=== PATIENT | female | born 1985 | race Caucasian/White ===

== ENCOUNTER 2020-10-11 14:24 | Outpatient (REF) | payer OTHER, SELFPAY ==
[2020-10-11 15:13] LABS: COVID-19 Test Negative (Negative); IDNOW Serial# 55D5AD1C
== END 2020-10-11 14:25 | disposition home or self-care (01) ==
LOC: HO.LAB 14:24
PROVIDERS: Visit Provider Internal Medicine
DX: Z20.822 Contact with and (suspected) exposure to COVID-19 (principal)
CPT/HCPCS: 36415; 87635; C9803

== ENCOUNTER 2021-05-16 11:42 | Outpatient (REF) | payer OTHER, SELFPAY ==
[2021-05-16 13:53] LABS: MANUAL DIFF FLAG NO
[2021-05-16 14:01] LABS: Basophils Percent Auto 0.6 % (0-2); Eosinophils Absolute Auto 0.3 X10*3/uL (0.0-0.4); Eosinophils Percent Auto 3.9 % (0-4); Hematocrit 38.3 % (37.0-47.0); Hemoglobin 12.1 g/dl (12.0-16.0); Imm Gran Abs Auto 0.01 X10*3/uL (0.00-0.03); Imm Gran Pct Auto 0.1 % (0.0-0.4); Lymphocytes Absolute Auto 2.4 X10*3/uL (1.2-4.9); Lymphocytes Percent Auto 33.5 % (20-40); Mean Corpuscular HGB Conc 31.6 g/dl (31.0-35.0); Mean Corpuscular Hemoglobin 29.4 pg (27.0-33.0); Mean Corpuscular Volume 93.2 fL (80.0-98.0); Mean Platelet Volume 11.3 fL (9.4-12.3); Monocytes Absolute Auto 0.5 X10*3/uL (0.1-1.2); Monocytes Percent Auto 7.3 % (2-11); Neutrophils Absolute Auto 3.9 x10*3/uL (2.0-8.3); Neutrophils Percent Auto 54.6 % (45-73); Platelet Count 360 X10*3/uL (160-400); Red Blood Count 4.11 X10*6/uL (4.20-5.50); Red Cell Distribution Width 15.3 % (11.0-16.0); White Blood Count 7.1 X10*3/uL (4.8-10.8)
[2021-05-16 14:17] LABS: Iron 196 mcg/dL (30-160); Percent Iron Saturation 41 % (15-50); Total Iron Binding Capacity 479 mcg/dL (228-428); Unsaturated Iron Binding 283 ug/dL
== END 2021-05-16 11:43 | disposition home or self-care (01) ==
LOC: HO.HMGCLDS 11:42
PROVIDERS: PCP Internal Medicine; Visit Provider Physician Assistant Medical
DX: Z20.822 Contact with and (suspected) exposure to COVID-19 (principal); G43.909 Migraine, unspecified, not intractable, without status migrainosus
CPT/HCPCS: 36415; 83540; 85025; U0003; U0005

== ENCOUNTER 2023-05-20 16:19 | Outpatient (REF) | payer OTHER, SELFPAY ==
--- NOTE | ~2023-05-20 | CT_ITS ---
EXAMINATION: CT SINUS WITHOUT CONTRAST CLINICAL INFORMATION: 38-year-old with polyp of nasal cavity. COMPARISON: None available. TECHNIQUE: Volumetric CT imaging of the paranasal sinuses was done with multiplanar reformatted reconstructions without IV contrast. This CT examination was performed using dose optimization techniques as appropriate, variously including the following: *Automated exposure control *Adjustment of mA and/or kV according to patient size (this includes techniques or standardized protocols for targeted exams where dose is matched to indication/reason for exam; i.e. extremities or head) *Use of iterative reconstruction technique DLP: 107 mGy-cm FINDINGS: NASAL CAVITY: There is mild nasal septal deviation to the left with a spur on the left encroaching on the left middle meatus. There is a w[place] bullosa in the left middle turbinate. The olfactory recesses are clear. There is thickening of the inferior turbinates bilaterally, right more than left without nodularity. No discrete nasal cavity masses identified. The visualized nasopharyngeal soft tissues appear relatively symmetric and normal in attenuation. MAXILLARY SINUSES: Well-pneumatized bilaterally. There are bilateral Gemma cells, which are opacified on the left, with anatomic narrowing of the right maxillary infundibulum without occlusion. No air-fluid levels or significant mucosal thickening. Bony tovar are intact. ETHMOID SINUSES: The ethmoid complex demonstrates minor mucosal thickening, with grossly intact bony tovar. There are bilateral supraorbital cells. Incidental left-sided Onodi cell. FRONTAL SINUSES: Hyperpneumatized bilaterally. Mild mucosal thickening in the right frontal recess without air-fluid level. Accessory frontal cells noted in the region of the left frontal recess with mild mucosal thickening. No air-fluid levels. SPHENOID SINUS: Well-pneumatized. Foci of mucosal thickening are seen obscuring the sphenoid ostia bilaterally. No air-fluid levels. Carotid canals are covered by bone. ADDITIONAL FINDINGS: Limited assessment of the included intracranial structures. No gross acute process. Orbital soft tissues appear symmetric and unremarkable. Visualized calvarium is intact. The mastoids and middle ear cavities are unopacified. Both mastoids are hyperpneumatized. CT/CT sinus wo IV con IMPRESSION: 1. Mild nasal septal deviation to the left with a spur on the left encroaching on the left middle meatus. 2. Thickening of the inferior turbinates bilaterally, right more than left. No discrete nasal cavity masses are identified. 3. Mild mucosal thickening in the ethmoid complex, frontal recesses and sphenoid ostia without air-fluid levels. 4. Bilateral Gemma cells, which are opacified on the left with anatomic narrowing of the right maxillary infundibulum.
== END 2023-05-20 16:20 | disposition home or self-care (01) ==
LOC: HO.CT 16:19
PROVIDERS: Visit Provider Otolaryngology
DX: J33.0 Polyp of nasal cavity (principal); J34.2 Deviated nasal septum
CPT/HCPCS: 70486

== ENCOUNTER 2024-01-29 09:04 | Outpatient (AMB) | payer OTHER, SELFPAY ==
--- NOTE | 2024-01-29 09:20 | AM.OFFWIN_ITS ---
Intake Vital Signs 01/29/24 09:21 Height 5 ft 6 in Weight 167 lb BMI 27.0 BP 98/70 Blood Pressure Location Rt brachial Position Sitting Pulse 58 Pulse Source Pulse Oximeter Pulse Oximetry (%) 100 Oxygen Delivery Method Room Air Intake Visit Reasons: EP- dizziness, nausea, cold sweats Intake Note: Patient here because on Thursday she had dizzy spell and nausea and had to sleep it off and it started again today. Patient Tobacco Use Status: Never used Tobacco Allergies No Known Allergies Allergy (Verified 01/29/24 09:22) Do you need a note to return to daycare/school/sports/work: Yes HPI HPI Comments History of Present Illness Details 39 y/o female patient who presents to [facility] in clinic with c/o URI symptoms associated with Dizziness. Today patient has low BP which is not normal for her. She does report hydrating well. This morning has not eaten anything yet. PFSH Social History Patient Tobacco Use Status: Never used Tobacco Review of Systems Const All systems reviewed & are unremarkable except as noted in HPI and below Physical Exam Vital Signs: Last Vital Signs Pulse 58 01/29/24 09:21 BP 98/70 01/29/24 09:21 Pulse Ox 100 01/29/24 09:21 Oxygen Delivery Method Room Air 01/29/24 09:21 BMI result Body Mass Index 27.0 Const General: comfortable and no acute distress Orientation/consciousness: patient oriented x3 Resp Effort & Inspection: normal respiratory effort and able to speak in complete sentences Auscultation: clear to auscultation bilaterally Cardio Heart sounds: S1 normal heart sound present and S2 normal heart sound present Neuro General: patient oriented x3, gait normal and moves all extremities Psych Speech and movement: Normal speech and movement present Assessment & Plan Assessment & Plan (1) Dizziness: Code(s): R42 - Dizziness and giddiness Plan: OTC Meclizine Rest Eat some food Hydrate well. (2) Upper respiratory infection: Code(s): J06.9 - Acute upper respiratory infection, unspecified Qualifiers: URI type: unspecified viral URI Qualified Code(s): J06.9 - Acute upper respiratory infection, unspecified Plan: Rest Hydrate well. Acetaminophen for pain relief. Coding Level of Care Code Est Pt Level 3 (95802) Diagnoses Dizziness R42 Viral upper respiratory tract infection J06.9 URI type: unspecified viral URI Time Spent (min) 15
[2024-01-29 09:21] VITALS: BP 98/70; PULSE 58; O2SAT 100; BMI 27.0
== END 2024-01-29 10:02 | disposition home or self-care (01) ==
PROVIDERS: PCP Internal Medicine; Visit Provider Nurse Practitioner Family
DX: R42 Dizziness and giddiness (principal); J06.9 Acute upper respiratory infection, unspecified
CPT/HCPCS: 99213

== ENCOUNTER 2024-01-30 16:30 | Emergency (ER) | payer OTHER, SELFPAY ==
[2024-01-30 16:41] VITALS: BP 138/92; PULSE 62; RESP 16; TEMP 36.7; O2SAT 100; BMI 30.1
--- NOTE | 2024-01-30 18:23 | ED.GENADULT ---
HPI - General Adult General Chief complaint: Dizziness Stated complaint: dizziness past wk nausea Time Seen by Provider: 01/30/24 17:50 History of Present Illness ED Provider: Zelalem ETIENNE narrative: The patient is a 39-year-old female who was ordinarily in fairly good health. She is on Lexapro and control pills. She says that 4 days ago on Thursday she had a sudden dizzy spell when she was in a store that was associated with a sense of the room spinning and also a sense of diaphoresis. The symptoms lasted possibly as long as 45 minutes. She went to an urgent care after the episode and was told she might be dehydrated. She then had another similar episode yesterday morning and 2 more episodes this morning which were all very similar and which prompted her to come to the emergency room. The patient says the symptoms are not associated with any significant headache or chest pain or shortness of breath. She has had some nausea but no vomiting. No fever, sweats, chills. She says she had a brief episode while lying on the stretcher in the emergency department. She has never had episodes like this before. Related Data Home Medications ?Medication ?Instructions ?Recorded ?Confirmed norgestimate 0.25 mg-ethinyl 1 tab PO DAILY 05/16/21 estradiol 35 mcg tablet escitalopram oxalate 5 mg tablet 5 mg PO DAILY 01/29/24 Allergies Allergy/AdvReac Type Severity Reaction Status Date / Time No Known Allergies Allergy Verified 01/30/24 16:41 [facility] Social History Social History Patient Tobacco Use Status: Never used Tobacco Smoked in Last 30 Days: No Use of substances other than those prescribed or required for medical reasons: No Advance Directives: No Advance Directives Information Provided: No Do you have a plan to hurt others: No Plan Physical Exam ED Vital Signs: Vital Signs - 24 hr 01/30/24 16:41 01/30/24 20:21 Temperature 98.0 F 97.9 F Pulse Rate 62 64 Respiratory Rate 16 14 Blood Pressure 138/92 H 116/71 Pulse Oximetry 100 99 Oxygen Delivery Method Room Air Room Air BMI result Body Mass Index 30.1 Const General: cooperative, healthy appearing, comfortable, no acute distress, well developed, alert and awake Orientation/consciousness: patient oriented x3 HENMT Head: Yes normal to inspection Ears: external ears normal, TM's normal bilaterally and EAC's normal Face and sinus: Yes normal facial exam Mouth: Normal oral and palatal mucosa present, tongue normal and moist mucous membranes Throat: Yes posterior oropharynx normal Eyes Other: No nystagmus General: appearance normal, both eyes and all related structures Alignment and Position: alignment normal Conjunctivae: conjunctivae normal Pupils: Equal, round and reactive pupils present EOM: EOMs intact bilaterally Neck Neck: Yes normal visual inspection, Yes full ROM, Yes no lymphadenopathy, Yes no meningeal signs and Yes supple Resp Effort & Inspection: normal respiratory effort Auscultation: clear to auscultation bilaterally Cardio Rate: regular rate Rhythm: regular rhythm Heart sounds: S1 normal heart sound present and S2 normal heart sound present Skin Other: Warm and dry, normal skin General skin exam: no rashes or lesions noted Neuro General: patient oriented x3, tone normal, moves all extremities, no meningeal signs and CN's II-XI intact bilaterally Cranial nerves: Yes Equal, round and reactive pupils present Cognition (Neuro): normal cognition Motor exam (neuro): 5/5 motor strength present throughout and Pronator motor function not present Coordination: [id number]-[id number] test normal and vezr-eb-[id number] test normal Extrem General: Yes normal to inspection, Yes no pedal edema and Yes no calf tenderness Medications Administered Discontinued Medications Generic Name Dose Route Start Last Admin Trade Name Freq PRN Reason Stop Dose Admin Sodium Chloride 1,000 mls @ 999 mls/hr 01/30/24 19:00 01/30/24 20:30 Ns IV 01/30/24 20:00 Infused .Q1H1M MAINOR Infusion Medical Decision Making Medical Decision Making [facility] Narrative: The patient is a 39-year-old female who presents for evaluation of several episodes over the last several days of what she describes as room spinning dizziness associated with mild headaches. Episodes can last as long as 45 minutes. The patient does not seem to describe any positional nature to this room spinning dizziness. The episodes seem discrete by her description and do not seem to be triggered by any particular factor. She has an unremarkable EKG she has unremarkable laboratory studies today. Her physical exam does not reveal any focal neurological deficit. Her overall appearance is very benign and nontoxic. I do not have a good explanation for her symptoms but I think she may be discharged to follow-up with her regular doctor. Lab Data 01/30/24 19:30 01/30/24 19:30 Labs: Lab Results 01/30/24 01/30/24 01/30/24 Range/Units 19:28 19:30 20:22 WBC 7.5 (4.8-10.8) X10*3/uL RBC 4.48 (4.20-5.50) X10*6/uL Hgb 14.2 (12.0-16.0) g/dl Hct 41.9 (37.0-47.0) % MCV 93.5 (80.0-98.0) fL MCH 31.7 (27.0-33.0) pg MCHC 33.9 (31.0-35.0) g/dl RDW 13.4 (11.0-16.0) % Plt Count 363 (160-400) X10*3/uL MPV 10.4 (9.4-12.3) fL Immature Gran % (Auto) 0.1 (0.0-0.4) % Neut % (Auto) 43.1 L (45-73) % Lymph % (Auto) 41.9 H (20-40) % [place] % (Auto) 5.5 (2-11) % Eos % (Auto) 8.6 H (0-4) % Baso % (Auto) 0.8 (0-2) % Lymph # (Auto) 3.1 (1.2-4.9) X10*3/uL [place] # (Auto) 0.4 (0.1-1.2) X10*3/uL Eos # (Auto) 0.6 H (0.0-0.4) X10*3/uL Baso # (Auto) 0.1 (0.0-0.2) X10*3/uL Abs Immat Gran (auto) 0.01 (0.00-0.03) X10*3/uL Absolute Neuts (auto) 3.2 (2.0-8.3) x10*3/uL Absolute Nucleated RBC 0.000 (0.0-0.012) X10*3/uL Nucleated RBC % (auto) 0.0 (0.0-0.2) /100WBC Sodium 141 (135-145) mmol/L Potassium 4.0 (3.3-5.1) mmol/L Chloride 104 (96-108) mmol/L Carbon Dioxide 26 (22-29) mmol/L Anion Gap 15 (12-20) BUN 11 (9-16) mg/dL Creatinine 0.67 (0.5-1.4) mg/dL Estim Creat Clear Calc 126.0 Estimated GFR > 60 Random Glucose 96 (60-115) mg/dL Calcium 9.6 (8.4-10.2) mg/dL Magnesium 2.2 (1.6-2.6) mg/dL Total Bilirubin 0.4 (0.0-1.0) mg/dL Direct Bilirubin 0.1 (0.0-0.5) mg/dL AST 22 (5-31) U/L ALT 14 (0-31) U/L Alkaline Phosphatase 49 (39-117) U/L C-Reactive Protein 0.26 (< or = 0.50) mg/dL Total Protein 7.7 (6.5-8.0) g/dL Albumin 4.3 (3.5-5.0) g/dL Beta HCG, Quant < 2 mIU/mL Influenza Type A (PCR) NEGATIVE (Negative) Influenza Type B (PCR) NEGATIVE (Negative) RSV RNA Qual (PCR) NEGATIVE (Negative) SARS-CoV-2 RNA (RT-PCR) NEGATIVE (Negative) Independent Interpretation I performed an independent interpretation of an: EKG Interpretation: EKG at 19:07 shows normal sinus rhythm at 66 beats per minute. It is a normal EKG. Discharge Plan Discharge Clinical Impression: Severe dizziness Patient Disposition: Home, Self-Care Additional Instructions: Your testing in the emergency room today and your physical exam seems very reassuring. It is not clear to me why you are having these episodes of room spinning dizziness. Please keep your appointment with your regular doctor on Thursday. Emergency room if significantly worse. Prescriptions: No Action escitalopram oxalate 5 mg tablet 5 mg PO DAILY Referrals: Corry Joseph MD [Primary Care Provider] - (episodes of room spinning dizziness) Interventions: ED Discharge Assessment Last Done: 01/30/24 21:25 Discharge Date/Time: 01/30/24 21:28 Print Language: Guamanian
--- NOTE | 2024-01-30 18:55 | ECG_ITS ---
Test Reason : DIZZINESS Blood Pressure : / mmHG Vent. Rate : 066 BPM Atrial Rate : 066 BPM P-R Int : 206 ms QRS Dur : 070 ms QT Int : 398 ms P-R-T Axes : 055 008 038 degrees QTc Int : 417 ms Normal sinus rhythm Normal ECG No previous ECGs available Referred By: Dennis Masterson Electronically Signed By:NKECHI RODRIGUEZ
[2024-01-30] MEDS: 0.9 % Sodium Chloride 1,000 ML 999 ML IV (19:29)
--- NOTE | 2024-01-30 19:39 | PC.NURSE ---
Pt ca&ox4, no signs of distress. Pt ambulates with steady gait. IV placed and meds administered per aug. Pts family at bedside. Pt denies pain at this time. Plan of care ongoing.
[2024-01-30 19:41] LABS: MANUAL DIFF FLAG NO
[2024-01-30 19:43] LABS: Basophils Absolute Auto 0.1 X10*3/uL (0.0-0.2); Basophils Percent Auto 0.8 % (0-2); Eosinophils Absolute Auto 0.6 X10*3/uL (0.0-0.4); Eosinophils Percent Auto 8.6 % (0-4); Hematocrit 41.9 % (37.0-47.0); Hemoglobin 14.2 g/dl (12.0-16.0); Imm Gran Abs Auto 0.01 X10*3/uL (0.00-0.03); Imm Gran Pct Auto 0.1 % (0.0-0.4); Lymphocytes Absolute Auto 3.1 X10*3/uL (1.2-4.9); Lymphocytes Percent Auto 41.9 % (20-40); Mean Corpuscular HGB Conc 33.9 g/dl (31.0-35.0); Mean Corpuscular Hemoglobin 31.7 pg (27.0-33.0); Mean Corpuscular Volume 93.5 fL (80.0-98.0); Mean Platelet Volume 10.4 fL (9.4-12.3); Monocytes Absolute Auto 0.4 X10*3/uL (0.1-1.2); Monocytes Percent Auto 5.5 % (2-11); Neutrophils Absolute Auto 3.2 x10*3/uL (2.0-8.3); Neutrophils Percent Auto 43.1 % (45-73); Platelet Count 363 X10*3/uL (160-400); Red Blood Count 4.48 X10*6/uL (4.20-5.50); Red Cell Distribution Width 13.4 % (11.0-16.0); White Blood Count 7.5 X10*3/uL (4.8-10.8)
[2024-01-30 20:01] LABS: Alanine Aminotransferase 14 U/L (0-31); Albumin Level 4.3 g/dL (3.5-5.0); Alkaline Phosphatase 49 U/L (39-117); Anion Gap 15 (12-20); Aspartate Amino Transferase 22 U/L (5-31); Bilirubin Direct 0.1 mg/dL (0.0-0.5); Bilirubin Total 0.4 mg/dL (0.0-1.0); Blood Urea Nitrogen 11 mg/dL (9-16); C Reactive Protein 0.26 mg/dL (< or = 0.50); Calcium 9.6 mg/dL (8.4-10.2); Carbon Dioxide 26 mmol/L (22-29); Chloride 104 mmol/L (96-108); Estimated Glomerular Filt Rate > 60; Glucose Random 96 mg/dL (60-115); Magnesium 2.2 mg/dL (1.6-2.6); Sodium 141 mmol/L (135-145); Total Protein 7.7 g/dL (6.5-8.0)
[2024-01-30 20:05] LABS: HCG Quantitative < 2 mIU/mL
[2024-01-30 20:21] VITALS: BP 116/71; PULSE 64; RESP 14; TEMP 36.6; O2SAT 99
[2024-01-30 21:05] LABS: Influenza A PCR NEGATIVE (Negative); Influenza B PCR NEGATIVE (Negative); Resp Syncy Virus RNA Qual PCR NEGATIVE (Negative); SARS COV2 PCR INHOUSE NEGATIVE (Negative)
[2024-01-30 21:25] VITALS: BP 116/71; PULSE 64; RESP 14; TEMP 36.6; O2SAT 99
== END 2024-01-30 21:28 | disposition home or self-care (01) ==
PROVIDERS: Emergency Provider Emergency Medicine; PCP Internal Medicine
DX: R42 Dizziness and giddiness (principal); Z03.818 Encounter for observation for suspected exposure to other biological agents ruled out
CPT/HCPCS: 0241U; 36415; 80048; 80076; 83735; 84702; 85025; 86140; 93005; 96360; 99284; 99285

== ENCOUNTER 2024-07-08 10:15 | Outpatient (REF) | payer OTHER, SELFPAY ==
--- OUTSIDE RECORDS SUMMARY | 2024-07-08 13:43 | XMS_ITS | Clinical Summary ---
Author Organization [facility] Address [address] [place] [address] Phone Care Team Providers Care Mail Handlers Supervisor Name Role Phone Unavailable Primary Care Provider Unavailabl e Immunizations Name Administration Dates Next Due DTP 08/12/1998, 8,05/14/1997,03/14/1997 ,10/13/1991 Hib (HbOC) 08/12/1998 IPV 02/12/1999, 8,05/14/1997,03/14/1997 ,10/13/1991 Influenza, injectable, trivalent 04/22/2007,01/2003 MMR 01/28/1988 Family History Relation Name Status Comments Brother Alive Brother: h/o as thma Father Father: Diabete s mellitus Mother Mother: Asthma, high cholesterol Social History Tobacco Use Types Packs/Day Years Used Date Smoking Tobacco: Never Assessed Comments Unknown Sex and Gender Information Value Date Recorded Sex Assigned at Not on file Legal Sex Female 4:36 PM EDT Gender Identity Not on file Sexual Orientation Not on file Plan of Treatment Health Maintenance Due Date Last Done Comments Varicella Vaccines (1 of 2 - 13+ 2-dose series) 01/17/2000 Hepatitis B Vaccines (1 of 3 - 19+ 3-dose series) 2006 DTaP,Tdap,and Td Vaccines (4 - Tdap) 08/12/2008 08/12/1998, 07/15/1997, 05/14/1997, Additional history exists Influenza Vaccines (#1) 2024 04/22/2007, 05/22 COVID-19 Vaccine ( season) 2024 MMR Vaccines Completed 01/28/1988 HIB Vaccines Aged Out 08/12/1998 No longer eligi ble based on patient's age to complete this topic IPV Vaccines Completed 02/12/1999, 06/17, 05/14/1997, Additional history exists HPV Vaccines Aged Out No longer eligi ble based on patient's age to complete this topic Hepatitis A Vaccines Aged Out No long er eligible based on patient's age to complete this topic Men B Vaccine Aged Out No longer elig ible based on patient's age to complete this topic Meningococcal Vaccine Aged Out No mil sahara eligible based on patient's age to complete this topic Pneumococcal Vaccine Aged Out No long er eligible based on patient's age to complete this topic
--- OUTSIDE RECORDS SUMMARY | 2024-07-08 13:43 | XMS_ITS | Encounter Summary ---
Author Organization [facility] Address [address] [place] [phone] Phone Care Team Providers Care Tanker Driver Name Role Phone Unavailable Primary Care Provider Unavailabl e Encounter Details Date Type Department Care Team (Late st Contact Info) Description 01/29/2017 Conversion Encounter [facility] - [address] [id number] Social History Tobacco Use Types Packs/Day Years Used Date Smoking Tobacco: Never Assessed Comments Unknown Sex and Gender Information Value Date Recorded Sex Assigned at Not on file Legal Sex Female 4:36 PM EDT Gender Identity Not on file Sexual Orientation Not on file documented as of this encounter Plan of Treatment Not on file documented as of this encounter Visit Diagnoses Not on filedocumented in this encounter
--- OUTSIDE RECORDS SUMMARY | 2024-07-08 13:43 | XMS_ITS | Clinical Summary ---
Author Organization [facility] [address] [facility] Address [address] [facility] [place], [place] Phone Care Team Providers Care Material Carrier Name Role Phone Gaston Shetty MD Primary Care Provider [phone] Allergies Active Allergy Reactions Criticality Noted Date Comments Pollen Extracts 11/20/2016 Medications Medication Sig Dispensed Refills Start Date End Date Status aspirin-acetaminop hen-caffeine (EXCEDRIN MIGRAINE) 250-250-65 mg per tablet Take 1 tablet by mouth every 6 (six) hours if needed. Active ferrous sulfate 325 mg (65 mg elemental iron) tablet Take 1 tablet (325 mg total) by mouth 1 (one) time each day. 11/26/2023 Active norgestimate-ethin yl estradioL (ORTHO-CYCLEN) 0.25-35 mg-mcg per tablet Take 1 tablet by mouth 1 (one) time each day. 12/31/2023 Active escitalopram (LEXAPRO) 5 mg tablet Take 1 tablet (5 mg total) by mouth 1 (one) time each day. Active escitalopram (LEXAPRO) 10 mg tablet Take 1 tablet (10 mg total) by mouth 1 (one) time each day. 02/25/2024 06/24/2024 Discontinued Active Problems Problem Noted Date Diagnosed Date Iron deficiency anemia 01/26/2019 Migraine 05/20/2011 Low back pain 07/03/2009 Overview (03/12/2024): IMO update Encounters Date Type Department Care Team Description 06/24/2024 9:05 AM EST - 06/24/2024 11:59 PM [facility] Hospital Encounter ALEJANDRINA Perez [address] [place], [place] [phone] Chronic midline low back pain with left-sided sciatica Discharge Disposition: Home or Self Care 06/24/2024 8:30 AM EST Office Visit Adult Medicine [facility] [address] [place], [place] [phone] Gaston Shetty MD Annual physical exam (Primary Dx); Chronic midline low back pain with left-sided sciatica from Last 3 Months Immunizations Name Administration Dates Next Due DTP 08/12/1998, 8,05/14/1997,1996,10/13/1991 HPV, Quadrivalent 08/13/2010,04/18/2010,02/14/20 10 Hib (HbOC) 08/12/1998 IPV Inactivated polio (Ipol) 6wks and older 02/12/1999,07/15/1997,05/14/1997,1996,10/13/1991 Influenza Quadravalent, MDCK , 0.5ml, preservative free (Flucelvax) 6mo and older 03/24/2018 Influenza trivalent, 0.5mL, preservative free (Fluarix; FluLaval; Fluzone) ages 6mo and older (Afluria) 3 years and older 02/22/2014,02/12/2013,05/20/2011 Influenza trivalent, with preservative (Fluzone; Afluria) 6mo and older 04/22/2007,05/22/2003 Influenza, Unspecified 02/20/2024 MMR, measles mumps and rubel la Live (Priorix; M-M-R II) 12mo and older 01/28/1988 Pfizer SARS-CoV-2 COVID-19, mRNA, LNP-S, preservative free 03/22/2021 Td Tetanus diptheria (Tdvax) 7yo and older 03/22/2019 Tdap Tetanus diptheria acell ular pertussis (Boostrix; Adacel) 7yo and older 02/20/2024,01/27/2008 Surgical History Surgery Date Site/Laterality Comments TONSILLECTOMY PROCEDURE: HISTORICAL TONSILLECTOMY BREAST REDUCTION 2008 PROCEDURE: MI BREAST REDUCTION Medical History Medical History Date Comments Migraines DX:Migraines Family History Medical History Relation Name Comments Dementia Father Diabetes Father Asthma Mother Atrial fibrillation Mother Breast cancer Neg Hx Colon cancer Neg Hx Heart attack Neg Hx Ovarian cancer Neg Hx Relation Name Status Comments Brother Alive Father DM Mother Alive Asthma, high ch oleterol and high BP Social History Tobacco Use Types Packs/Day Years Used Date Smoking Tobacco: Never Smokeless Tobacco: Never Alcohol Use Standard Drinks/Week Comments Yes 0 (1 standard drink = 0.6 oz pur e alcohol) Housing Instability Answer Date Recorde d Are you worried that in the next 2 months you may not have stable housing? No 06/17/2024 Food Access & Nutrition Answer Date Rec orded Do you have access to a vari ety of food including fruits and vegetables? Yes 06/17/2024 Access to Healthcare Answer Date Record ed Within the last 3 months, ho w many times did you visit the emergency department for your medical care? 0 06/17/2024 Health Literacy Answer Date Recorded How often do you need to hav e someone help you when you read instructions, pamphlets, or other written material from your doctor or pharmacy? Never 06/17/2024 Caregiver: How often do you need to have someone help you when you read instructions, pamphlets, or other written material from your doctor or pharmacy? Not on file 06/17/2024 Financial Risk Answer Date Recorded How hard is it for you to pa y for the very basics like food, housing, medical care, and air conditioning / heating? Not very hard 06/17/2024 Transportation Answer Date Recorded Has the lack of transportati on kept you from meetings, work, or from getting things needed for daily living? No Has the lack of transportati on kept you from medical appointments or from getting medications? No 06/17/2024 Social Isolation Answer Date Recorded How often do you feel lonely or isolated from th ose around you? Rarely 06/17/2024 Food Risk Answer Date Recorded Within the past 12 months we worried whether our food would run out before we got money to buy more. Never true 06/17/2024 Within the past 12 months th e food we bought just didn't last and we didn't have money to get more. Never true 06/17/2024 Dependent Care Answer Date Recorded Do you need help finding or paying for care for your loved ones. For example, director maternal child or elderly care for an older adult? No 06/17/2024 Education Answer Date Recorded Do you think completing more education or training, like finishing a GED, going to college, or learning a trade, would be helpful for you? N/A 06/17/2024 Employment and Income Answer Date Recor ded During the last four weeks, have you been actively looking for work? No 06/17/2024 Living Situation Answer Date Recorded What is your living situation? 0 06/17/2024 Sex and Gender Information Value Date Recorded Sex Assigned at Not on file Gender Identity Not on file Sexual Orientation Not on file Job Start Date Occupation Industry Not on file Not on file Not on file Obstetrics History Last Filed Vital Signs Vital Sign Reading Time Taken Comments Blood Pressure 100/70 06/24/2024 8:36 AM EST Pulse 76 06/24/2024 8:36 AM EST Temperature 36.4 ??C (97.6 ??F) 06/24/2024 8:36 AM ES T Respiratory Rate 12 06/24/2024 8:36 AM EST Oxygen Saturation - - Inhaled Oxygen Concentration - - Weight 76.7 kg (169 lb) 06/24/2024 8:36 AM EST Height 167.6 cm (5' 6 ) 06/24/2024 8:36 AM EST Body Mass Index 27.28 06/24/2024 8:36 AM EST Plan of Treatment Upcoming Encounters Date Type Department Care Team (Late st Contact Info) Description 06/30/2025 8:00 AM EST Office Visit Adult Medicine [facility] [address] [place] [phone] Gaston Shetty MD [address] [place] [address] Health Maintenance Due Date Last Done Comments HIV Screening 06/15/2025 Postponed from 05/18/2022 (Patient Refused) Hepatitis B Vaccines (1 of 3 - 19+ 3-dose series) 06/15/2025 Postponed from 2006 (Patient Refused) Depression Screening 06/17/2025 06/17/2024 Social Influencers of Health Screening 06/17/2025 06/17/2024 Cervical Cancer Screening: Pap Smear 09/22/2025 09/22/2022 DTaP,Tdap,and Td Vaccines (7 - Td or Tdap) 02/19/2034 02/20/2024, 03/22/2019, 01/27/2008, Additional history exists MMR Vaccines Completed 01/28/1988 HIB Vaccines Aged Out 08/12/1998 No longer eligi ble based on patient's age to complete this topic IPV Vaccines Completed 02/12/1999, 06/17, 05/14/1997, Additional history exists HPV Vaccines Completed 08/13/2010, 09/2009, 02/13/2010 COVID-19 Vaccine Completed 02/20/2024, 09/2022, 03/24/2022, Additional history exists Influenza Vaccine Completed 02/20/2024, , 02/16/2021, Additional history exists Hepatitis C Screening Completed 07/08/2024 Hepatitis A Vaccines Aged Out No long er eligible based on patient's age to complete this topic Meningococcal ACWY Vaccine Aged Out N o longer eligible based on patient's age to complete this topic Pneumococcal Vaccine: Pediatrics (0 to 5 Years) and At-Risk Patients (6 to 64 Years) Aged Out No longer eligible based on patient's age to complete this topic RSV Immunization Patients Under 20 months Aged Out No longer eligible based on patient's age to complete this topic Varicella Vaccines Aged Out No longer eligible based on patient's age to complete this topic Procedures Procedure Name Priority Date/Time Associated Diagnosis Comments CBC WITH AUTO DIFFERENTIAL Routine 07/08/2024 8:24 AM EST Annual physical exam HEPATITIS C ANTIBODY Routine 07/08/2024 8:24 AM EST Annual physical exam THYROID STIMULATING HORMONE WITH REFLEX TO FREE T4 AND FREE T3 Routine 07/08/2024 8:24 AM EST Annual physical exam LIPID PANEL WITH REFLEX TO DIRECT LDL Routine 07/08/2024 8:24 AM EST Annual physical exam HEMOGLOBIN A1C Routine 07/08/2024 8:24 AM EST Annual physical exam COMPREHENSIVE METABOLIC PANEL Routine 07/08/2024 8:24 AM EST Annual physical exam CBC AND DIFFERENTIAL Routine 07/08/2024 8:24 AM EST Annual physical exam XR LUMBAR SPINE 4+ VIEWS Routine 06/24/2024 9:14 AM EST Chronic midline low back pain with left-sided sciatica from Last 3 Months Results * Hepatitis C antibody (07/08/2024 8:24 AM EST) Pathologist [facility] Hepatitis C Antibody Negative Negative LAB CHEMISTRY METHOD 07/08/2024 11:19 AM EST [facility] Blood Venous blood specimen / Unknown Venipuncture / Unknown 07/08/2024 8:24 AM EST 07/08/2024 8:24 AM EST Gaston Shetty MD LAB BLOOD ORDERABLE S Performing Organization Address City/[facility]/ZIP Co de Phone Number [facility] [address] [place] [address], [place] [phone] * Thyroid stimulating hormone with reflex to free t4 and free t3 (07/08/2024 8:24 AM EST) Pathologist [facility] TSH 1.90 0.40 - 4.00 mcIU/mL LAB CHEMISTRY METHOD 07/08/2024 10:40 AM EST [facility] Blood Venous blood specimen / Unknown Venipuncture / Unknown 07/08/2024 8:24 AM EST 07/08/2024 8:24 AM EST Gaston Shetty MD LAB BLOOD ORDERABLE S Performing Organization Address City/[facility]/ZIP Co de Phone Number [facility] [address] [place] [address], [place] [phone] * (ABNORMAL) Lipid panel with reflex to direct LDL (07/08/2024 8:24 AM EST) Cholesterol 200 0 - 200 mg/dL LAB CHEMISTRY METHOD 07/08/2024 10:47 AM [facility] Triglycerides 69 0 - 150 mg/dL LAB CHEMISTRY METHOD 07/08/2024 10:47 AM [facility] HDL 81 >=40 mg/dL LAB CHEMISTRY METHOD 07/08/2024 10:47 AM [facility] LDL Calculated 105(H) 0 - 100 mg/dL LAB CHEMISTRY METHOD 07/08/2024 10:47 AM [facility] VLDL Cholesterol Jose 13.8 mg/dL LAB CHEMISTRY METHOD 07/08/2024 10:47 AM [facility] Non HDL Chol. (LDL+VLDL) 119 <145 mg/dL LAB CHEMISTRY METHOD 07/08/2024 10:47 AM [facility] Chol/HDL Ratio 2.5 0.0 - 4.4 LAB CHEMISTRY METHOD 07/08/2024 10:47 AM [facility] Blood Venous blood specimen / Unknown Venipuncture / Unknown 07/08/2024 8:24 AM EST 07/08/2024 8:24 AM EST Gaston Shetty MD LAB BLOOD ORDERABLE S [facility] [address] [place] [address], * (ABNORMAL) CBC auto differential (07/08/2024 8:24 AM EST) WBC 9.5 4.8 - 10.8 K/mcL LAB HEMETOLOGY METHOD 07/08/2024 10:18 AM [facility] RBC 4.40 3.80 - 4.80 M/mcL LAB HEMETOLOGY METHOD 07/08/2024 10:18 AM [facility] Hemoglobin 13.6 11.5 - 16.0 g/dL LAB HEMETOLOGY METHOD 07/08/2024 10:18 AM [facility] Hematocrit 42.7 35.0 - 47.0 % LAB HEMETOLOGY METHOD 07/08/2024 10:18 AM [facility] MCV 98.2(H) 79.0 - 98.0 FL LAB HEMETOLOGY METHOD 07/08/2024 10:18 AM [facility] MCH 31.3 27.0 - 32.0 pcg LAB HEMETOLOGY METHOD 07/08/2024 10:18 AM [facility] MCHC 31.9(L) 32.0 - 37.0 g/dL LAB HEMETOLOGY METHOD 07/08/2024 10:18 AM [facility] RDW 12.9 11.0 - 15.0 % LAB HEMETOLOGY METHOD 07/08/2024 10:18 AM [facility] Platelets 342 130 - 400 K/mcL LAB HEMETOLOGY METHOD 07/08/2024 10:18 AM [facility] MPV 11.3(H) 7.0 - 11.0 FL LAB HEMETOLOGY METHOD 07/08/2024 10:18 AM [facility] NRBC 0.0 <1.0 % LAB HEMETOLOGY METHOD 07/08/2024 10:18 AM [facility] NRBC Absolute 0.00 <0.10 K/mcL LAB HEMETOLOGY METHOD 07/08/2024 10:18 AM [facility] Neutrophils Relative 66.6 % LAB HEMETOLOGY METHOD 07/08/2024 10:18 AM [facility] Lymphocytes Relative 22.1 % LAB HEMETOLOGY METHOD 07/08/2024 10:18 AM [facility] Monocytes Relative 4.1 % LAB HEMETOLOGY METHOD 07/08/2024 10:18 AM EST [facility] Eosinophils Relative 6.4 % LAB HEMETOLOGY METHOD 07/08/2024 10:18 AM EST [facility] Basophils Relative 0.6 % LAB HEMETOLOGY METHOD 07/08/2024 10:18 AM [facility] Immature Granulocytes Relative 0.2 % LAB HEMETOLOGY METHOD 07/08/2024 10:18 AM EST [facility] Neutrophils Absolute 6.32 1.50 - 7.00 K/mcL LAB HEMETOLOGY METHOD 07/08/2024 10:18 AM EST [facility] Lymphocytes Absolute 2.10 1.00 - 5.00 K/mcL LAB HEMETOLOGY METHOD 07/08/2024 10:18 AM [facility] Monocytes Absolute 0.39 0.20 - 1.00 K/mcL LAB HEMETOLOGY METHOD 07/08/2024 10:18 AM EST [facility] Eosinophils Absolute 0.61(H) 0.00 - 0.50 K/mcL LAB HEMETOLOGY METHOD 07/08/2024 10:18 AM EST [facility] Basophils Absolute 0.06 0.00 - 0.20 K/mcL LAB HEMETOLOGY METHOD 07/08/2024 10:18 AM EST [facility] Immature Granulocytes Absolute 0.02 0.00 - 0.03 K/mcL LAB HEMETOLOGY METHOD 07/08/2024 10:18 AM EST [facility] Blood Venous blood specimen / Unknown Venipuncture / Unknown 07/08/2024 8:24 AM EST 07/08/2024 8:24 AM EST Gaston Shetty MD LAB BLOOD ORDERABLE S [facility] [address] [place] [address], * Hemoglobin A1c (07/08/2024 8:24 AM EST) Pathologist [facility] Hemoglobin A1C 4.9 <6.5 % LAB CHEMISTRY METHOD 07/08/2024 1:30 PM [facility] Mean Bld Glu Estim. 94 mg/dL LAB CHEMISTRY METHOD 07/08/2024 1:30 PM [facility] Blood Venous blood specimen / Unknown Venipuncture / Unknown 07/08/2024 8:24 AM EST 07/08/2024 8:24 AM EST Gaston Shetty MD LAB BLOOD ORDERABLE S [facility] [address] [place] [address], * (ABNORMAL) Comprehensive metabolic panel (07/08/2024 8:24 AM EST) [facility] Sodium 138 133 - 145 mmol/L LAB CHEMISTRY METHOD 07/08/2024 10:44 AM [facility] Potassium 4.5 3.5 - 5.5 mmol/L LAB CHEMISTRY METHOD 07/08/2024 10:44 AM [facility] Chloride 105 96 - 110 mmol/L LAB CHEMISTRY METHOD 07/08/2024 10:44 AM [facility] CO2 27 21 - 32 mmol/L LAB CHEMISTRY METHOD 07/08/2024 10:44 AM [facility] Anion Gap 6 3 - 11 LAB CHEMISTRY METHOD 07/08/2024 10:44 AM [facility] Glucose 69(L) 70 - 100 mg/dL LAB CHEMISTRY METHOD 07/08/2024 10:44 AM [facility] BUN 15 5 - 25 mg/dL LAB CHEMISTRY METHOD 07/08/2024 10:44 AM [facility] Creatinine 0.70 0.50 - 1.10 mg/dL LAB CHEMISTRY METHOD 07/08/2024 10:44 AM [facility] eGFR 114 >=60 mL/min/1. 73m2 LAB CHEMISTRY METHOD 07/08/2024 10:44 AM [facility] Comment:Calculation based on the??Chronic Kidney Disease Epidemiology Collaboration (CKD-EPI) equation refit??without adjustment for race. BUN/Creatinine Ratio 21.4 LAB CHEMISTRY METHOD 07/08/2024 10:44 AM [facility] Calcium 8.8 8.5 - 10.5 mg/dL LAB CHEMISTRY METHOD 07/08/2024 10:44 AM [facility] AST (SGOT) 16 10 - 42 unit/L LAB CHEMISTRY METHOD 07/08/2024 10:44 AM [facility] ALT (SGPT) 24 10 - 60 unit/L LAB CHEMISTRY METHOD 07/08/2024 10:44 AM [facility] Alkaline Phosphatase 47 42 - 121 unit/L LAB CHEMISTRY METHOD 07/08/2024 10:44 AM [facility] Total Protein 7.3 6.0 - 8.0 g/dL LAB CHEMISTRY METHOD 07/08/2024 10:44 AM [facility] Albumin 3.9 3.2 - 5.0 g/dL LAB CHEMISTRY METHOD 07/08/2024 10:44 AM [facility] Total Bilirubin 0.5 0.0 - 1.4 mg/dL LAB CHEMISTRY METHOD 07/08/2024 10:44 AM [facility] Blood Venous blood specimen / Unknown Venipuncture / Unknown 07/08/2024 8:24 AM EST 07/08/2024 8:24 AM EST Gaston Shetty MD LAB BLOOD ORDERABLE S [facility] [address] [place] [address], * XR Lumbar Spine 4+ Views (06/24/2024 9:14 AM EST) Anatomical Region Laterality Modality Spine, L-spine Radiographic Vanessa ging 06/24/2024 1:07 PM EST Impressions 06/24/2024 1:08 PM EST No significant degenerative changes. -------- FINAL REPORT -------- Dictated By: Cyndy Garcia Dictated Date: 06/24/2024 13:07 ET Assigned Physician: Cyndy Garcia Reviewed and Electronically Signed By: Cyndy Garcia Signed Date: 06/24/2024 13:08 ET Workstation ID: [id number] Transcribed By: Self Edit Transcribed Date: 06/24/2024 13:07 ET Narrative 06/24/2024 1:08 PM EST XR LUMBAR SPINE 4 VIEWS Reason: chronic low back pain Comparison: None FINDINGS: Grade 1 retrolisthesis of L2 on L3 and L3 on L4. ??No compression fracture deformity. ??Mild disc space narrowing at L5-S1. ??No significant facet arthropathy. ??Sacroiliac joints are intact. Procedure Note Cyndy Garcia MD - 06/24/2024 XR LUMBAR SPINE 4 VIEWS Reason: chronic low back pain Comparison: None FINDINGS: Grade 1 retrolisthesis of L2 on L3 and L3 on L4. No compression fracturedeformity. Mild disc space narrowing at L5-S1. No significant facetarthropathy. Sacroiliac joints are intact. IMPRESSION: No significant degenerative changes. -------- FINAL REPORT -------- Dictated By: Cyndy Garcia Dictated Date: 06/24/2024 13:07 ET Assigned Physician: Cyndy Garcia Reviewed and Electronically Signed By: Cyndy Garcia Signed Date: 06/24/2024 13:08 ET Workstation ID: [id number] Transcribed By: Self Edit Transcribed Date: 06/24/2024 13:07 ET Gaston Shetty MD IMG XR PROCEDURES from Last 3 Months Care Teams Material Carrier Relationship Specialty Start Date End Date Gaston Shetty MD [address] [place] [address] PCP - General 02/12/24
--- OUTSIDE RECORDS SUMMARY | 2024-07-08 13:43 | XMS_ITS | Encounter Summary ---
Author Organization [facility] Address [address] [place] [address] Care Team Providers Care Administrative And Program Specialist Name Role Phone Gaston Shetty MD Primary Care Provider [phone] Encounter Details Date Type Department Care Team (Latest Contact Info) Description 06/24/2024 9:05 AM EST - 06/24/2024 11:59 PM [facility] Hospital Encounter XRAY - [place] [address] [place] [address] Chronic midline low back pain with left-sided sciatica Discharge Disposition: Home or Self Care Social History Tobacco Use Types Packs/Day Years [...] care for your loved ones. For example, childcare aide or elderly care for an older adult? [...] file Not on file Not on file documented as of this encounter Medications at Time of Discharge Medication Sig Dispensed Refills Start Date End Date gecqjvl-fkegcgwzsdnrh-dfbt eine (EXCEDRIN MIGRAINE) 250-250-65 mg per tablet Take 1 tablet by mouth every 6 (six) hours if needed. escitalopram (LEXAPRO) 5 mg tablet Take 1 tablet (5 mg total) by mouth 1 (one) time each day. ferrous sulfate 325 mg (65 mg elemental iron) tablet Take 1 tablet (325 mg total) by mouth 1 (one) time each day. 11/26/2023 norgestimate-ethinyl estradioL (ORTHO-CYCLEN) 0.25-35 mg-mcg per tablet Take 1 tablet by mouth 1 (one) time each day. 12/31/2023 documented as of this encounter Discharge Disposition Disposition Code Departure Means Destination Home or Self Care documented in this encounter Plan of Treatment Upcoming Encounters Date Type Department Care Team (Late st Contact Info) Description 06/30/2025 8:00 AM EST Office Visit Adult Medicine [facility] [address] [place] [address] Gaston Shetty MD [address] [place] [address] documented as of this encounter Procedures Procedure Name Priority Date/Time Associated Diagnosis Comments XR LUMBAR SPINE 4+ VIEWS Routine 06/24/2024 9:14 AM EST Chronic midline low back pain with left-sided sciatica documented in this encounter Results * XR Lumbar Spine 4+ Views (06/24/2024 9:14 AM EST) Anatomical Region Laterality Modality Spine, L-spine Radiographic Vanessa ging 06/24/2024 1:07 PM EST Impressions 06/24/2024 1:08 PM EST No significant degenerative changes. -------- FINAL REPORT -------- Dictated By: Cyndy Garcia Dictated Date: 06/24/2024 13:07 ET Assigned Physician: Cyndy Garcia Reviewed and Electronically Signed By: Cyndy Garcia Signed Date: 06/24/2024 13:08 ET Workstation ID: [id number] Transcribed By: Self Edit Transcribed Date: 06/24/2024 [...] Signed Date: 06/24/2024 13:08 ET Workstation ID: [id number] Transcribed By: Self Edit Transcribed Date: 06/24/2024 13:07 ET Gaston Shetty MD IMG XR PROCEDURES documented in this encounter Visit Diagnoses Diagnosis Chronic midline low back pain with left-sided sciatica documented in this encounter Additional Health Concerns Assessment Noted Time PHQ-9 Depression Total Score: 5 06/17/19 25 12:17 PM EST documented as of this encounter Care Teams Administrative And Program Specialist Relationship Specialty Start Date End Date Gaston Shetty MD [address] [place] [address] PCP - General 02/12/24 documented as of this encounter
--- OUTSIDE RECORDS SUMMARY | 2024-07-08 13:43 | XMS_ITS | Encounter Summary ---
Author Organization [facility] Address [address] [place] [address] Care Team Providers Care Sole Scraper Name Role Phone Gaston Shetty MD Primary Care Provider [phone] Reason for Visit * Reason Comments Annual Exam Encounter Details Date Type Department Care Team ([facility] st Contact Info) Description 06/24/2024 8:30 AM EST Office Visit Adult Medicine [facility] [address] [place] [address] Gaston Shetty MD [address] [place], [place] Annual physical exam (Primary Dx); Chronic midline low back pain with left-sided sciatica Social History Tobacco Use Types Packs/Day Years [...] care for your loved ones. For example, school child care attendant or elderly care for an older adult? [...] on file documented as of this encounter Last Filed Vital Signs Vital Sign Reading [...] Mass Index 27.28 06/24/2024 8:36 AM EST documented in this encounter Patient Instructions * Attachments The following attachments cannot be sent through Care Everywhere. * Well Visit: 18 to 65 Years (Nauruan) * Diet: DASH (Nauruan) documented in this encounter Progress Notes * Gaston Shetty MD - 06/24/2024 8:30 AM EST CHIEF COMPLAINT: Annual Exam IDENTIFIER: Gianna Dutton is a 39 y.o. old female. HPI: Patient presents today for annual physical exam. Patient comes for chronic intermittent low back pain since childhood (with left sided sciatica which started after her 2015) Heating pads helps patient Patient has anxiety and is on lexapro 5 mg daily Rx by mental health team ROS: The remainder of review of systems is noncontributory. PAST MEDICAL HISTORY: Patient Active Problem List Diagnosis Date Noted Iron deficiency anemia 01/26/2019 Migraine 05/20/2011 Low back pain 07/03/2009 SOCIAL HISTORY: Social History Tobacco Use Smoking status: Never Smokeless tobacco: Never Substance Use Topics Alcohol use: Yes FAMILY HISTORY: Family Status Relation Name Status Mother Alive Asthma, high choleterol and high BP Father DM Brother Alive Neg Hx (Not Specified) No partnership data on file Family History Problem Relation Name Age of Onset Asthma Mother Atrial fibrillation Mother Diabetes Father Dementia Father 83 Colon cancer Neg Hx Breast cancer Neg Hx Heart attack Neg Hx Ovarian cancer Neg Hx ACTIVE MEDICATIONS: No outpatient medications have been marked as taking for the 06/24/24 encounter (Office Visit) with Gaston Shetty MD. ALLERGIES: Pollen extracts PHYSICAL EXAM: Blood pressure 100/70, pulse 76, temperature 36.4 ??C (97.6 ??F), resp. rate 12, height 1.676 m (66 ), weight 76.7 kg (169 lb). Body mass index is 27.28 kg/m??. BMI is greater than 25.0 (above the normal range) - see Plan APPEARANCE: Alert and in no acute distress EYES: PERRLA, conjunctiva and sclera normal EARS: External ears normal. Canals clear. TMs normal. NOSE/SINUS: Nares normal. Septum midline. Mucosa normal. No drainage or sinus tenderness MOUTH/THROAT: no erythema, lesions, or exudates NECK: Neck supple, no adenopathy, thyroid symmetric and of normal size HEART: RRR with normal S1 and S2, no murmurs, no gallops, no JVD appreciated CHEST: non-tender LUNG: clear to auscultation bilaterally LYMPH NODES: grossly normal ABDOMEN: Bowel sounds normoactive, no bruits and soft, non-tender, without organomegaly or palpablemasses BACK: no pain to palpation and good flexion and extension EXTREMITIES: Extremities warm and well perfused without clubbing, cyanosis, or edema NEURO: Awake, alert and oriented x 3 SKIN: Skin color, texture, turgor normal. No rashes or lesions. LABS/IMAGING: No results found for: WBC , HGB , HCT , MCV No results found for: NA , K , CO2 , CL , BUN , GLU , ALB , ALKPHOS , TP No results found for: CHOL , LDL , HDL , TRIG No results found for: TSH IMPRESSION: 1. Annual physical exam 2. Chronic midline low back pain with left-sided sciatica PLAN: 1. Health maintenance: The patient presented for an evaluation of general health. As part of this visit, we reviewed the following issues, which are considered an essential part of preventative health in this age group: - Breast cancer screening for high risk individuals - mammogram not warranted - Cervical cancer testing every 1-3 years - patient is up-to-date - Blood pressure annual screening performed - Cholesterol screening every five years - ordered - Osteoporosis prevention including calcium/vitamin D intake, weight bearing exercise & smokingcessation - Nutritional and exercise counseling - patient advised to pursue at least 30 minutes of exercise most days of the week and limit portion sizes - Counseling of injury prevention including fire prevention, smoke alarms and seat belt usage - Screening for depression - yes - Screening for domestic abuse - Screening for Type 2 diabetes mellitus in those with hypertension and/or hyperlipidemia - Prevention of and/or testing for infectious diseases, which may include Chlamydia, Gonorrhea, Syphilis, HIV, Hepatitis C and Tuberculosis - advice about STD prevention provided - One time hepatitis C screening in all adults - Education about skin cancer - Recommendations about immunizations - patient is up-to-date on immunizations - Recommendation of an eye exam for glaucoma once in this age range - patient is up-to-date - Preconception counseling - see Substance & Sexuality section of medical record and contraception counseling provided - Screening for substance abuse (including tobacco, alcohol, and recreational drugs) - see Substance & Sexuality section of medical record - Genetic cancer risk screening - NO INDICATION: Hereditary Cancer Syndrome Risk Assessment completed and evaluated. No indication found for genetic testing at this time. - In addition to reviewing these issues, I have reviewed the following sections of the chart: Past Medical History, Social History, and Social History - Did you have a dental visit in the last 12 months? Yes Annual labs including CBC, CMP, A1c, lipid profile, thyroid function test, hep C antibody #Chronic midline low back pain with left sided sciatica Plan Patient will continue heating pads and OTC pain medication Patient to go for x-ray of lumbar spine to evaluate for osteoarthritis Orders Placed This Encounter Procedures CBC and differential Standing Status: Future Standing Expiration Date: 06/24/2025 Comprehensive metabolic panel Standing Status: Future Standing Expiration Date: 06/24/2025 Order Specific Question: Has the Patient Fasted? Answer: No Hemoglobin A1c Standing Status: Future Standing Expiration Date: 12/22/2024 Lipid panel with reflex to direct LDL Standing Status: Future Standing Expiration Date: 06/24/2025 Thyroid stimulating hormone with reflex to free t4 and free t3 Standing Status: Future Standing Expiration Date: 06/24/2025 Hepatitis C antibody Standing Status: Future Standing Expiration Date: 06/24/2025 Order Specific Question: Is this test being used for Screening (absence of signs and/or symptoms) OR Diagnostic (signs/symptoms are present) purposes? Answer: Screen Gaston Shetty MD on 06/25/2024 at 9:11 AM EST documented in this encounter Plan of Treatment Upcoming Encounters Date Type Department Care Team (Late st Contact Info) Description 06/30/2025 8:00 AM EST Office Visit Adult Medicine [facility] [address] [place] [address] Gaston Shetty MD [address] [place] [address] documented as of this encounter Results * Hepatitis C antibody (07/08/2024 8:24 AM EST) [facility] Hepatitis C Antibody Negative Negative LAB CHEMISTRY METHOD 07/08/2024 11:19 AM EST [facility] Blood Venous blood specimen / Unknown Venipuncture / Unknown 07/08/2024 8:24 AM EST 07/08/2024 8:24 AM EST Gaston Shetty MD LAB BLOOD ORDERABLE S [facility] [address] [place] [address], * Thyroid stimulating hormone with reflex to free t4 and free t3 (07/08/2024 8:24 AM EST) [facility] TSH 1.90 0.40 - 4.00 mcIU/mL LAB CHEMISTRY METHOD 07/08/2024 10:40 AM EST [facility] Blood Venous blood specimen / Unknown Venipuncture / Unknown 07/08/2024 8:24 AM EST 07/08/2024 8:24 AM EST Gaston Shetty MD LAB BLOOD ORDERABLE S [facility] [address] [place] [address], [place] [phone] * (ABNORMAL) Lipid panel with reflex to direct LDL (07/08/2024 8:24 AM EST) [facility] Cholesterol 200 0 - 200 mg/dL LAB CHEMISTRY METHOD 07/08/2024 10:47 AM EST [facility] Triglycerides 69 0 - 150 mg/dL LAB CHEMISTRY METHOD 07/08/2024 10:47 AM EST [facility] HDL 81 >=40 mg/dL LAB CHEMISTRY METHOD 07/08/2024 10:47 AM EST [facility] LDL Calculated 105(H) 0 - 100 mg/dL LAB CHEMISTRY METHOD 07/08/2024 10:47 AM [facility] VLDL Cholesterol Jose 13.8 mg/dL LAB CHEMISTRY METHOD 07/08/2024 10:47 AM [facility] Non HDL Chol. (LDL+VLDL) 119 <145 mg/dL LAB CHEMISTRY METHOD 07/08/2024 10:47 AM [facility] Chol/HDL Ratio 2.5 0.0 - 4.4 LAB CHEMISTRY METHOD 07/08/2024 10:47 AM [facility] Blood Venous blood specimen / Unknown Venipuncture / Unknown 07/08/2024 8:24 AM EST 07/08/2024 8:24 AM EST Gaston Shetty MD LAB BLOOD ORDERABLE S Performing Organization Address City/[facility]/ZIP Co de Phone Number [facility] [address] [place] [address], [place] [phone] * Hemoglobin A1c (07/08/2024 8:24 AM EST) [facility] Signature Hemoglobin A1C 4.9 <6.5 % LAB CHEMISTRY METHOD 07/08/2024 1:30 PM [facility] Mean Bld Glu Estim. 94 mg/dL LAB CHEMISTRY METHOD 07/08/2024 1:30 PM [facility] Blood Venous blood specimen / Unknown Venipuncture / Unknown 07/08/2024 8:24 AM EST 07/08/2024 8:24 AM EST Gaston Shetty MD LAB BLOOD ORDERABLE S [facility] [address] [place] [address], [place] [phone] * (ABNORMAL) Comprehensive metabolic panel (07/08/2024 8:24 AM EST) Sodium 138 133 - 145 mmol/L LAB CHEMISTRY METHOD 07/08/2024 10:44 AM [facility] Potassium 4.5 3.5 - 5.5 mmol/L LAB CHEMISTRY METHOD 07/08/2024 10:44 AM [facility] Chloride 105 96 - 110 mmol/L LAB CHEMISTRY METHOD 07/08/2024 10:44 AM [facility] CO2 27 21 - 32 mmol/L LAB CHEMISTRY METHOD 07/08/2024 10:44 AM [facility] Anion Gap 6 3 - 11 LAB CHEMISTRY METHOD 07/08/2024 10:44 AM [facility] Glucose 69(L) 70 - 100 mg/dL LAB CHEMISTRY METHOD 07/08/2024 10:44 AM [facility] BUN 15 5 - 25 mg/dL LAB CHEMISTRY METHOD 07/08/2024 10:44 AM [facility] Creatinine 0.70 0.50 - 1.10 mg/dL LAB CHEMISTRY METHOD 07/08/2024 10:44 AM [facility] eGFR 114 >=60 mL/min/1. 73m2 LAB CHEMISTRY METHOD 07/08/2024 10:44 AM [facility] Comment:Calculation based on the??Chronic Kidney Disease Epidemiology Collaboration (CKD-EPI) equation refit??without adjustment for race. BUN/Creatinine Ratio 21.4 LAB CHEMISTRY METHOD 07/08/2024 10:44 AM [facility] Calcium 8.8 8.5 - 10.5 mg/dL LAB CHEMISTRY METHOD 07/08/2024 10:44 AM [facility] AST (SGOT) 16 10 - 42 unit/L LAB CHEMISTRY METHOD 07/08/2024 10:44 AM [facility] ALT (SGPT) 24 10 - 60 unit/L LAB CHEMISTRY METHOD 07/08/2024 10:44 AM [facility] Alkaline Phosphatase 47 42 - 121 unit/L LAB CHEMISTRY METHOD 07/08/2024 10:44 AM EST [facility] Total Protein 7.3 6.0 - 8.0 g/dL LAB CHEMISTRY METHOD 07/08/2024 10:44 AM EST [facility] Albumin 3.9 3.2 - 5.0 g/dL LAB CHEMISTRY METHOD 07/08/2024 10:44 AM EST [facility] Total Bilirubin 0.5 0.0 - 1.4 mg/dL LAB CHEMISTRY METHOD 07/08/2024 10:44 AM EST [facility] Blood Venous blood specimen / Unknown Venipuncture / Unknown 07/08/2024 8:24 AM EST 07/08/2024 8:24 AM EST Gaston Shetty MD LAB BLOOD ORDERABLE S [facility] [address] [place] [address], documented in this encounter Visit Diagnoses Diagnosis Annual physical exam- Primary Routine general medical examination at a health care facility Chronic midline low back pain with left-sided sciatica documented in this encounter Discontinued Medications Medication Sig Discontinue Reason Start Date End Da te escitalopram (LEXAPRO) 10 mg tablet Take 1 tablet (10 mg total) by mouth 1 (one) time each day. 02/25/2024 06/24/2024 documented as of this encounter Historical Medications * This list may reflect changes made after this encounter. Medication Sig Dispensed Refills Start Date End Date escitalopram (LEXAPRO) 5 mg tablet Take 1 tablet (5 mg total) by mouth 1 (one) time each day. added in this encounter Additional Health Concerns Assessment Noted Time PHQ-9 Depression Total Score: 5 06/17/19 25 12:17 PM EST documented as of this encounter Care Teams Sole Scraper Relationship Specialty Start Date End Date Gaston Shetty MD [address] [facility] [place] [address] PCP - General 02/12/24 documented as of this encounter
[2024-07-08 14:57] LABS: Influenza A PCR NEGATIVE (Negative); Influenza B PCR NEGATIVE (Negative); Resp Syncy Virus RNA Qual PCR NEGATIVE (Negative); SARS COV2 PCR INHOUSE NEGATIVE (Negative)
== END 2024-07-08 10:16 | disposition home or self-care (01) ==
LOC: HO.LAB 10:15
PROVIDERS: PCP Internal Medicine; Visit Provider Physician Assistant
DX: J06.9 Acute upper respiratory infection, unspecified (principal); R09.89 Other specified symptoms and signs involving the circulatory and respiratory systems
CPT/HCPCS: 0241U; 87880

== ENCOUNTER 2025-01-31 15:42 | Outpatient (AMB) | payer OTHER, SELFPAY ==
--- OUTSIDE RECORDS SUMMARY | 2025-01-31 17:03 | XMS_ITS | Clinical Summary ---
Author Organization [facility] Address [address] [place] [address] Phone Care Team Providers Care Property Utilization Manager Name Role Phone Unavailable Primary Care Provider Unavailabl e Immunizations Immunization Administration Dates Next Due DTP 08/12/1998, 8,05/14/1997,03/14/1997 [...] 08/12/2008 08/12/1998, 07/15/1997, 05/14/1997, Additional history exists HPV Vaccines (1 - 3-dose SCDM series) 2014 COVID-19 Vaccine ( - 2023- season) 2024 Influenza Vaccines (#1) 2025 04/22/2007, 05/22 MMR Vaccines Completed 01/28/1988 HIB Vaccines Aged Out 08/12/1998 No longer eligi ble based on patient's age to complete this topic IPV Vaccines Completed 02/12/1999, 06/17, 05/14/1997, Additional history exists Hepatitis A Vaccines Aged Out No long [...]
--- OUTSIDE RECORDS SUMMARY | 2025-01-31 17:04 | XMS_ITS | Clinical Summary ---
Author Organization [facility] [address] [place] [address] Address [address] [facility] BILL[place] Phone Care Team Providers Care Noodle Maker Name Role Phone Gaston Shetty MD Primary Care Provider Allergies Active Allergy Reactions Criticality Noted Date Comments Pollen Extracts 11/20/2016 Medications aspirin-acetamin ophen-caffeine (EXCEDRIN MIGRAINE) 250-250-65 mg per tablet Take 1 tablet by mouth every 6 (six) hours if needed. Active ferrous sulfate 325 mg (65 mg elemental iron) tablet Take 1 tablet (325 mg total) by mouth 1 (one) time each day. 11/26/2023 Active norgestimate-eth inyl estradioL (ORTHO-CYCLEN) 0.25-35 mg-mcg per tablet Take 1 tablet by mouth 1 (one) time each day. 12/31/2023 Active meclizine (ANTIVERT) 12.5 mg tablet Take 1 tablet (12.5 mg total) by mouth 3 (three) times a day if needed for dizziness. 30 tablet 2 08/04/2024 Active escitalopram (LEXAPRO) 5 mg tablet TAKE 1 TABLET BY MOUTH 1 TIME EACH DAY. 90 tablet 11/09/2024 Active semaglutide (Wegovy) 2.4 mg/0.75 mL injection pen Inject 2.4 mg under the skin every 7 (seven) days. 9 mL 12/14/2024 5 Active cyanocobalamin, vitamin B-12, 1,000 mcg tablet, sublingual Place 1 tablet under the tongue 1 (one) time each day. 360 tablet 12/20/2024 6 Active Active Problems Problem Noted Date Diagnosed Date Overweight (BMI 25.0-29.9) 12/14/2024 Anxiety and depression 12/14/2024 Hypercholesterolemia 08/04/2024 Abnormal CBC 08/04/2024 Iron deficiency anemia 01/26/2019 Migraine 05/20/2011 Low back pain 07/03/2009 Overview (03/12/2024): IMO update Encounters Date Type Department Care Team Description 12/14/2024 1:30 PM EDT Office Visit Adult Medicine [address] [phone] Gaston Shetty MD Overweight (BMI 25.0-29.9) (Primary Dx); Elevated MCV; Abnormal CBC; Hyperlipidemia, unspecified hyperlipidemia type; Anxiety and depression; Skin tag from Last 3 Months Immunizations Name Administration [...] PROCEDURE: HISTORICAL TONSILLECTOMY BREAST REDUCTION 2008 PROCEDURE: [place] BREAST REDUCTION Medical History Medical History Date [...] Date Smoking Tobacco: Never Smokeless Tobacco: Never Tobacco Cessation:Counseling Given: Not Answered Alcohol Use Standard Drinks/Week Comments Yes 0 [...] care for your loved ones. For example, child support specialist or elderly care for an older adult? [...] What is your living situation? 0 06/17/2024 Comments No Sex and Gender Information Value Date Recorded Sex Assigned at Not on file Legal Sex Female 1:55 AM EST Gender Identity Not on file Sexual Orientation Not on file Obstetrics History Last Filed Vital Signs Vital Sign Reading Time Taken Comments Blood Pressure 107/79 12/14/2024 1:19 PM EDT Pulse 75 12/14/2024 1:19 PM EDT Temperature 36.9 C (98.4 F) 12/14/2024 1:19 PM EDT Respiratory Rate 14 09/13/2024 1:50 PM EDT Oxygen Saturation - - Inhaled Oxygen Concentration - - Weight 75.3 kg (166 lb) 12/14/2024 1:19 PM EDT Height 167.6 cm (5' 6 ) 12/14/2024 1:19 PM EDT Body Mass Index 26.79 12/14/2024 1:19 PM EDT Plan of Treatment Upcoming Encounters Date Type Department Care Team (Late st Contact Info) Description 03/23/2025 1:30 PM EDT Office Visit Adult Medicine [address] [phone] Gaston Shetty MD [address] [place], [place] 06/28/2025 3:30 PM EST Consult Bariatric Surgery - [place] [address] [facility] [address] [place] [phone] Vesna Saldaña PA [address] [facility] [address] [place] [address] 06/30/2025 8:00 AM EST Office Visit Adult Medicine [facility] [address] [place] [address] Gaston Shetty MD [address] [place], [place] Health Maintenance Due Date Last Done Comments Influenza Vaccine (#1) 2025 , 03/24/2022, 02/16/2021, Additional history exists COVID-19 Vaccine (7 - Pfizer risk 2023- season) 2025 02/20/2024, 10/16/2022, 03/24/2022, Additional history exists Postponed from 08/19/2024 (Patient Refused) HIV Screening 06/15/2025 Postponed from 05/18/2022 (Patient Refused) Hepatitis B Vaccines (1 of 3 - 19+ 3-dose series) 06/15/2025 Postponed from 2006 (Patient Refused) Social Influencers of Health Screening 06/17/2025 06/17/2024 Cervical Cancer Screening: Pap Smear 09/22/2025 09/22/2022 Cholesterol Screening (Lipid Panel) 12/19/2029 12/19/2024, 07/08/2024 DTaP,Tdap,and Td Vaccines (7 - Td or Tdap) 02/19/2034 02/20/2024, 03/22/2019, 01/27/2008, Additional history exists MMR Vaccines Completed 01/28/1988 HIB Vaccines Aged Out 08/12/1998 No longer eligi ble based on patient's age to complete this topic IPV Vaccines Completed 02/12/1999, 06/17, 05/14/1997, Additional history exists HPV Vaccines Completed 08/13/2010, 09/2009, 02/13/2010 Depression Screening Completed 06/17/2024 Hepatitis C Screening Completed 07/08/2024 Hepatitis A Vaccines Aged Out No long er eligible based on patient's age to complete this topic Meningococcal ACWY Vaccine Aged Out N o longer eligible based on patient's age to complete this topic Meningococcal B Vaccine Aged Out No l onger eligible based on patient's age to complete this topic Pneumococcal Vaccine: Pediatrics (0 to 5 Years) and At-Risk Patients (6 to 49 Years) Aged Out No longer eligible based on patient's age to complete this topic RSV Immunization Patients Under 20 months Aged Out No longer eligible based on patient's age to complete this topic Varicella Vaccines Aged Out No longer eligible based on patient's age to complete this topic Procedures Procedure Name Priority Date/Time Associated Diagnosis Comments CBC WITH AUTO DIFFERENTIAL Routine 12/19/2024 9:21 AM EDT Abnormal CBC LIPID PANEL WITH REFLEX TO DIRECT LDL Routine 12/19/2024 9:21 AM EDT Hypercholesterolemi a CBC AND DIFFERENTIAL Routine 12/19/2024 9:21 AM EDT Abnormal CBC VITAMIN B12 AND FOLATE Routine 12/19/2024 9:21 AM EDT Elevated MCV Abnormal CBC HEPATITIS C ANTIBODY Routine 07/08/2024 8:24 AM EST Annual physical exam from Last 3 Months or Most Recently Relevant to Health Maintenance Results * Vitamin B12 and folate (12/19/2024 9:21 AM EDT) Vitamin B-12 338 250 - 900 pcg/mL LAB CHEMISTRY METHOD 12/19/2024 1:28 PM EDT [facility] Folate 16.6 2.8 - 17.0 ng/ml LAB CHEMISTRY METHOD 12/19[facility]2024 [facility] Blood Venous blood specimen / Unknown Venipuncture / Unknown 12/19/2024 9:21 AM EDT 12/19/2024 9:21 AM EDT Gaston Shetty MD LAB BLOOD ORDERABLES Final Result [facility] [address] [place] [address], [place] [phone] * Lipid panel with reflex to direct LDL (12/19/2024 9:21 AM EDT) Cholesterol 172 0 - 200 mg/dL LAB CHEMISTRY METHOD 12/19/2024 1:31 PM EDT [facility] Triglycerides 73 0 - 150 mg/dL LAB CHEMISTRY METHOD 12/19/2024 1:31 [facility] HDL 82 >=40 mg/dL LAB CHEMISTRY METHOD 12/19/2024 1:31 PM EDT [facility] LDL Calculated 75 0 - 100 mg/dL LAB CHEMISTRY METHOD 12/19/2024 1:31 PM EDT [facility] VLDL Cholesterol Jose 14.6 mg/dL LAB CHEMISTRY METHOD 12/19/2024 1:31 PM [facility] Non HDL Chol. (LDL+VLDL) 90 <145 mg/dL LAB CHEMISTRY METHOD 12/19/2024 1:31 PM EDT [facility] Chol/HDL Ratio 2.1 0.0 - 4.4 LAB CHEMISTRY METHOD 12/19/2024 1:31 PM EDT [facility] Blood Venous blood specimen / Unknown Venipuncture / Unknown 12/19/2024 9:21 AM EDT 12/19/2024 9:21 AM EDT us Gaston Shetty MD LAB BLOOD ORDERABLES Final Result [facility] [address] [place] [address], * CBC auto differential (12/19/2024 9:21 AM EDT) [facility] WBC 6.1 4.8 - 10.8 K/mcL LAB HEMETOLOGY METHOD 12/19/2024 10:58 AM EDT [facility] RBC 4.40 3.80 - 4.80 M/mcL LAB HEMETOLOGY METHOD 12/19/2024 10:58 AM EDT [facility] Hemoglobin 14.0 11.5 - 16.0 g/dL LAB HEMETOLOGY METHOD 12/19/2024 10:58 AM EDT [facility] Hematocrit 42.3 35.0 - 47.0 % LAB HEMETOLOGY METHOD 12/19/2024 10:58 AM EDT [facility] MCV 95.9 79.0 - 98.0 FL LAB HEMETOLOGY METHOD 12/19/2024 10:58 AM EDT [facility] MCH 31.7 27.0 - 32.0 pcg LAB HEMETOLOGY METHOD 12/19/2024 10:58 AM EDT [facility] MCHC 33.1 32.0 - 37.0 g/dL LAB HEMETOLOGY METHOD 12/19/2024 10:58 AM EDT [facility] RDW 12.2 11.0 - 15.0 % LAB HEMETOLOGY METHOD 12/19/2024 10:58 AM EDT [facility] Platelets 358 130 - 400 K/mcL LAB HEMETOLOGY METHOD 12/19/2024 10:58 AM EDT [facility] MPV 10.8 7.0 - 11.0 FL LAB HEMETOLOGY METHOD 12/19/2024 10:58 AM EDT [facility] NRBC 0.0 <1.0 % LAB HEMETOLOGY METHOD 12/19/2024 10:58 AM [facility] NRBC Absolute 0.00 <0.10 K/mcL LAB HEMETOLOGY METHOD 12/19/2024 10:58 AM [facility] Neutrophils Relative 51.6 % LAB HEMETOLOGY METHOD 12/19/2024 10:58 AM [facility] Lymphocytes Relative 35.0 % LAB HEMETOLOGY METHOD 12/19/2024 10:58 AM [facility] Monocytes Relative 5.3 % LAB HEMETOLOGY METHOD 12/19/2024 10:58 AM [facility] Eosinophils Relative 6.7 % LAB HEMETOLOGY METHOD 12/19/2024 10:58 AM [facility] Basophils Relative 1.2 % LAB HEMETOLOGY METHOD 12/19/2024 10:58 AM [facility] Immature Granulocytes Relative 0.2 % LAB HEMETOLOGY METHOD 12/19/2024 10:58 AM [facility] Neutrophils Absolute 3.14 1.50 - 7.00 K/mcL LAB HEMETOLOGY METHOD 12/19/2024 10:58 AM [facility] Lymphocytes Absolute 2.13 1.00 - 5.00 K/mcL LAB HEMETOLOGY METHOD 12/19/2024 10:58 AM [facility] Monocytes Absolute 0.32 0.20 - 1.00 K/mcL LAB HEMETOLOGY METHOD 12/19/2024 10:58 AM [facility] Eosinophils Absolute 0.41 0.00 - 0.50 K/mcL LAB HEMETOLOGY METHOD 12/19/2024 10:58 AM [facility] Basophils Absolute 0.07 0.00 - 0.20 K/mcL LAB HEMETOLOGY METHOD 12/19/2024 10:58 AM [facility] Immature Granulocytes Absolute 0.01 0.00 - 0.03 K/mcL LAB HEMETOLOGY METHOD 12/19/2024 10:58 AM EDT [facility] Blood Venous blood specimen / Unknown Venipuncture / Unknown 12/19/2024 9:21 AM EDT 12/19/2024 9:21 AM EDT Gaston Shetty MD LAB BLOOD ORDERABLES Final Result Performing Organization Address City/[facility]/ZIP Co de Phone Number [facility] [address] [place] [address], [place] [phone] * Hepatitis C antibody (07/08/2024 8:24 AM EST) [facility] Hepatitis C Antibody Negative Negative LAB CHEMISTRY METHOD 07/08/2024 11:19 AM EST [facility] Blood Venous blood specimen / Unknown Venipuncture / Unknown 07/08/2024 8:24 AM EST 07/08/2024 8:24 AM EST Gaston Shetty MD LAB BLOOD ORDERABLES Final Result Performing Organization Address [facility] de Phone Number [facility] [address] [place] [address], [place] [phone] from Last 3 Months or Most Recently Relevant to Health Maintenance Insurance [place] [address] [place] [facility] Care Teams Noodle Maker Relationship Specialty Start Date End Date Gaston Shetty MD [address] [place] [address] PCP - General 02/12/24
== END 2025-01-31 15:44 | disposition home or self-care (01) ==
LOC: HO.HMGAL 15:42
PROVIDERS: PCP Internal Medicine; Visit Provider Registered Nurse Emergency
DX: J30.89 Other allergic rhinitis (principal)
CPT/HCPCS: 95117; 95165

== ENCOUNTER 2025-02-06 15:57 | Outpatient (AMB) | payer OTHER, SELFPAY ==
--- OUTSIDE RECORDS SUMMARY | 2025-02-06 17:50 | XMS_ITS | Encounter Summary ---
Author Organization [facility] Address [address] [place] [phone] Phone Care Team Providers Care Professor Of Social Work Name Role Phone Unavailable Primary Care Provider Unavailabl e Encounter Details Date Type Department Care Team (Late st Contact Info) Description 01/29/2017 Conversion Encounter [facility] - [address] [address] Social History Tobacco Use Types Packs/Day Years [...]
--- OUTSIDE RECORDS SUMMARY | 2025-02-06 17:50 | XMS_ITS | Clinical Summary ---
Author Organization [facility] [address] [place] [address] Address [address] [facility] [place] Phone Care Team Providers Care Pressing Machine Operator Name Role Phone Gaston Shetty MD Primary [...] 1:30 PM EDT Office Visit Adult Medicine [address] [phone] Gaston Shetty MD Overweight (BMI 25.0-29.9) (Primary [...] PROCEDURE: HISTORICAL TONSILLECTOMY BREAST REDUCTION 2008 PROCEDURE: [place] BREAST REDUCTION Medical History Medical History Date [...] care for your loved ones. For example, children's lunchroom supervisor or elderly care for an older adult? [...] 1:30 PM EDT Office Visit Adult Medicine [address] [phone] Gaston Shetty MD [address] [place], [place] 06/28/2025 3:30 PM EST Consult Bariatric Surgery - [place] [address] [facility] [address] [place] [phone] Vesna Saldaña PA [address] [place] [phone] 06/30/2025 8:00 AM EST Office Visit Adult Medicine [address] [phone] Gaston Shetty MD [address] [place], [place] Health Maintenance Due Date Last Done [...] LAB CHEMISTRY METHOD 12/19/2024 1:28 PM EDT [facility] Folate 16.6 2.8 - 17.0 ng/ml LAB CHEMISTRY METHOD 12/19/2024 1:28 PM EDT [facility] Blood Venous blood specimen / Unknown Venipuncture / Unknown 12/19/2024 9:21 AM EDT 12/19/2024 9:21 AM EDT Gaston Shetty MD LAB BLOOD ORDERABLES Final Result [facility] [address] [place] [address], [place] [phone] * Lipid panel with reflex to direct LDL (12/19/2024 9:21 AM EDT) [facility] Cholesterol 172 0 - 200 mg/dL LAB CHEMISTRY METHOD 12/19/2024 1:31 PM EDT [facility] Triglycerides 73 0 - 150 mg/dL LAB CHEMISTRY METHOD 12/19/2024 1:31 PM EDT [facility] HDL 82 >=40 mg/dL LAB CHEMISTRY METHOD 12/19/2024 1:31 PM EDT [facility] LDL Calculated 75 0 - 100 mg/dL LAB CHEMISTRY METHOD 12/19/2024 1:31 PM EDT [facility] VLDL Cholesterol Jose 14.6 mg/dL LAB CHEMISTRY METHOD 12/19/2024 1:31 PM EDT [facility] Non HDL Chol. (LDL+VLDL) 90 <145 mg/dL LAB CHEMISTRY METHOD 12/19/2024 1:31 PM EDT [facility] Chol/HDL Ratio 2.1 0.0 - 4.4 LAB CHEMISTRY METHOD 12/19/2024 1:31 PM EDT [facility] Blood Venous blood specimen / Unknown Venipuncture / Unknown 12/19/2024 9:21 AM EDT 12/19/2024 9:21 AM EDT Gaston Shetty MD LAB BLOOD ORDERABLES Final Result [facility] [address] [place] [address], [place] [phone] * CBC auto differential (12/19/2024 9:21 AM EDT) [facility] WBC 6.1 4.8 - 10.8 K/mcL LAB HEMETOLOGY METHOD 12/19/2024 10:58 AM [facility] RBC 4.40 3.80 - 4.80 M/mcL LAB HEMETOLOGY METHOD 12/19/2024 10:58 AM [facility] Hemoglobin 14.0 11.5 - 16.0 g/dL LAB HEMETOLOGY METHOD 12/19/2024 10:58 AM [facility] Hematocrit 42.3 35.0 - 47.0 % LAB HEMETOLOGY METHOD 12/19/2024 10:58 AM [facility] MCV 95.9 79.0 - 98.0 FL LAB HEMETOLOGY METHOD 12/19/2024 10:58 AM [facility] MCH 31.7 27.0 - 32.0 pcg LAB HEMETOLOGY METHOD 12/19/2024 10:58 AM [facility] MCHC 33.1 32.0 - 37.0 g/dL LAB HEMETOLOGY METHOD 12/19/2024 10:58 AM [facility] RDW 12.2 11.0 - 15.0 % LAB HEMETOLOGY METHOD 12/19/2024 10:58 AM [facility] Platelets 358 130 - 400 K/mcL LAB HEMETOLOGY METHOD 12/19/2024 10:58 AM [facility] MPV 10.8 7.0 - 11.0 FL LAB HEMETOLOGY METHOD 12/19/2024 10:58 AM [facility] NRBC 0.0 <1.0 % LAB HEMETOLOGY METHOD 12/19/2024 10:58 AM [facility] NRBC Absolute 0.00 <0.10 K/mcL LAB HEMETOLOGY METHOD 12/19/2024 10:58 AM [facility] Neutrophils Relative 51.6 % LAB HEMETOLOGY METHOD 12/19/2024 10:58 AM [facility] Lymphocytes Relative 35.0 % LAB HEMETOLOGY METHOD 12/19/2024 10:58 AM [facility] Monocytes Relative 5.3 % LAB HEMETOLOGY METHOD 12/19/2024 10:58 AM [facility] Eosinophils Relative 6.7 % LAB HEMETOLOGY METHOD 12/19/2024 10:58 AM [facility] Basophils Relative 1.2 % LAB HEMETOLOGY METHOD 12/19/2024 10:58 AM [facility] Immature Granulocytes Relative 0.2 % LAB HEMETOLOGY METHOD 12/19/2024 10:58 AM [facility] Neutrophils Absolute 3.14 1.50 - 7.00 K/mcL LAB HEMETOLOGY METHOD 12/19/2024 10:58 AM [facility] Lymphocytes Absolute 2.13 1.00 - 5.00 K/mcL LAB HEMETOLOGY METHOD 12/19/2024 10:58 AM [facility] Monocytes Absolute 0.32 0.20 - 1.00 K/mcL LAB HEMETOLOGY METHOD 12/19/2024 10:58 AM [facility] Eosinophils Absolute 0.41 0.00 - 0.50 K/mcL LAB HEMETOLOGY METHOD 12/19/2024 10:58 AM [facility] Basophils Absolute 0.07 0.00 - 0.20 K/mcL LAB HEMETOLOGY METHOD 12/19/2024 10:58 AM [facility] Immature Granulocytes Absolute 0.01 0.00 - 0.03 K/mcL LAB HEMETOLOGY METHOD 12/19/2024 10:58 AM EDT [facility] Blood Venous blood specimen / Unknown Venipuncture / Unknown 12/19/2024 9:21 AM EDT 12/19/2024 9:21 AM EDT Gaston Shetty MD LAB BLOOD ORDERABLES Final Result [facility] [address] [place] [address], [place] [phone] * Hepatitis C antibody (07/08/2024 8:24 AM EST) Hepatitis C Antibody Negative Negative LAB CHEMISTRY METHOD 07/08/2024 11:19 AM EST [facility] Blood Venous blood specimen / Unknown Venipuncture / Unknown 07/08/2024 8:24 AM EST 07/08/2024 8:24 AM EST Gaston Shetty MD LAB BLOOD ORDERABLES Final Result Performing Organization Address City/[facility]/ZIP Co de Phone Number [facility] [address] [place] [address], [place] [phone] from Last 3 Months or Most Recently Relevant to Health Maintenance Insurance [address] [place] [facility] Care Teams Pressing Machine Operator Relationship Specialty Start Date End Date Gaston Shetty MD [address] [place] [address] [facility] - General 02/12/24
--- OUTSIDE RECORDS SUMMARY | 2025-02-06 17:50 | XMS_ITS | Clinical Summary ---
Author Organization [facility] Address [address] [place] [address] Phone Care Team Providers Care Garment Cutter Name Role Phone Unavailable Primary Care Provider [...]
== END 2025-02-07 13:28 | disposition home or self-care (01) ==
LOC: HO.HMGAL 15:57
PROVIDERS: PCP Internal Medicine; Visit Provider Registered Nurse Emergency
DX: J30.89 Other allergic rhinitis (principal)
CPT/HCPCS: 95117; 95165